=== PATIENT | male | born 1975 ===

== ENCOUNTER 2021-01-31 11:13 | Emergency (ER) | payer OTHER ==
[~2021-01-31] VITALS: Ht 177.8 cm; Wt 204.6 kg
[2021-01-31] MEDS ORDERED: dexamethasone inj 8 MG in normal saline 50ml IV soln 50 ML IV STA (11:40)
[2021-01-31] MEDS ORDERED: acetaminophen 325mg tablet PO STA (11:40)
[2021-01-31] MEDS ORDERED: ALBUTEROL INHALER 1 PUFF/90 MCG INHALER IH PRN (11:40)
--- NOTE | 2021-01-31 12:17 | NUR ---
called pharmacy to see if decadron iv ready, per [place] the medication is on it's way here
--- NOTE | 2021-01-31 12:19 | NUR ---
SAUNDRA WOLFE ASKED TO DO EKG
[2021-01-31 12:20] LABS: BASOPHILS % (AUTO) 0.5 % (0-1); EOSINOPHILS % (AUTO) 0.4 % (0-6); HEMATOCRIT 47.1 % (42.0-52.0); LYMPHOCYTES # (AUTO) 1.4 X10'3 (1.1-4.8); LYMPHOCYTES % (AUTO) 29.3 % (21-51); MEAN CORPUSCULAR HEMOGLOBIN 31.5 PG (27.0-31.0); MEAN CORPUSCULAR HGB CONC 33.9 g/dL (33.0-36.5); MEAN CORPUSCULAR VOLUME 92.8 FL (78-98); MEAN PLATELET VOLUME 9.3 FL (7.4-10.4); MONOCYTES # (AUTO) 0.6 X10'3 (0-0.9); MONOCYTES % (AUTO) 12.1 % (2-12); NEUTROPHILS # (AUTO) 2.7 X10'3 (1.8-7.7); NEUTROPHILS % (AUTO) 57.7 % (42-75); PLATELET COUNT 126 X10'3 (140-440); RED BLOOD COUNT 5.08 X10'6 (4.70-6.10); WHITE BLOOD COUNT 4.7 X10'3 (4.5-11.0)
[2021-01-31 12:43] LABS: ALANINE AMINOTRANSFERASE 54 U/L (12-78); ALBUMIN 3.2 G/DL (3.4-5.0); ALBUMIN/GLOBULIN RATIO 0.8 (1.1-1.5); ALKALINE PHOSPHATASE 66 IU/L (46-116); ANION GAP 8 (8-16); ASPARTATE AMINO TRANSFERASE 34 U/L (10-37); BILIRUBIN,TOTAL 0.8 MG/DL (0.1-1.0); BLOOD UREA NITROGEN 7 MG/DL (7-18); BUN/CREATININE RATIO 7.4 (5.4-32.0); CALCIUM 8.2 MG/DL (8.5-10.1); CHLORIDE 102 MMOL/L (99-107); CREATININE 0.94 MG/DL (0.60-1.10); GLUCOSE 119 MG/DL (70-104); POTASSIUM 3.5 MMOL/L (3.5-5.1); SODIUM 139 MMOL/L (135-145); TOTAL CARBON DIOXIDE 28.9 MMOL/L (24-32); TOTAL PROTEIN 7.2 G/DL (6.4-8.2); eGFR 87 ML/MIN
[2021-01-31 12:51] LABS: C-REACTIVE PROTEIN 2.57 MG/DL (0.0-0.5); FERRITIN 694 NG/ML (26-388); LACTATE DEHYDROGENASE 282 U/L (85-227)
[2021-01-31] MEDS ORDERED: CefTRIAXone 2gm/D5W 50ml BAG 50 ML IV ONE (12:55)
[2021-01-31] MEDS ORDERED: azithromycin/NS 500mg/250ml 250 ML IV ONE (12:55)
[2021-01-31] MEDS ORDERED: normal saline 1000ML IV soln IV ONE (12:55)
[2021-01-31] MEDS ORDERED: iohexol 350MG/ML 100ml bottle IV ONE (14:22)
[2021-01-31 15:05] LABS: ABG BASE EXCESS -3.1 mmol/L (-2.0-2.0); ABG HCO3 21.1 mmol/L (22.0-26.0); ABG OXYGEN SATURATION 86.1 % (94-97); ABG PCO2 (T) 35.7 mmHg (35.0-48.0); ABG PO2 (T) 48.7 mmHg (75.0-100.0); ALLEN'S TEST POSITIVE; FCOHb 0.8 % (0.0-3.9); FMetHb 0.1 % (0.0-1.5); FO2Hb 85.3 % (94-97); TOTAL HEMOGLOBIN 16.7 G/dl (14.0-18.0)
[2021-01-31 15:06] LABS: D-DIMER 0.59 MG/L FEU (0-0.50)
[2021-01-31] MEDS ORDERED: DEXA4TAB PO (16:21)
[2021-01-31] MEDS ORDERED: AZIT500T PO (16:21)
[2021-01-31 17:13] VITALS: BP 132/112
== END 2021-01-31 17:11 | disposition home or self-care (01) ==
LOC: ER 11:14
DX: U07.1 COVID-19 (principal); J12.82 Pneumonia due to coronavirus disease 2019; R06.02 Shortness of breath; R05 Cough; I50.9 Heart failure, unspecified; E66.01 Morbid (severe) obesity due to excess calories; Z79.2 Long term (current) use of antibiotics; Z79.899 Other long term (current) drug therapy
CPT/HCPCS: 36415; 36600; 71045; 71275; 80053; 82728; 82803; 83605; 83615; 83880; 84145; 84484; 85018; 85025; 85379; 85384; 86140; 87040; 93005; 96365; 96366; 96367; 99285; J0456; J0696; J1100; J7030; Q9967